=== PATIENT | male | born 1950 | race Two or more races ===

== ENCOUNTER 2022-08-18 12:15 | Inpatient (IN) | payer OTHER ==
[~2022-08-18] VITALS: Ht 167.6 cm; Wt 95.3 kg
[2022-08-19] MEDS ORDERED: AMLODIPINE BESY10 MG PO (09:27)
[2022-08-19] MEDS ORDERED: ZIAC 2.5-6.251 EACH PO (09:27)
[2022-08-19] MEDS ORDERED: ALTACE10 MG PO (09:27)
[2022-08-24] MEDS ORDERED: SILDENAFIL CIT100 MG (09:59)
[2022-08-26] MEDS ORDERED: ELIQUIS2.5 MG PO (07:46)
[2022-08-26] MEDS ORDERED: PERCOCET 5-3251 EACH PO (07:46)
[2022-08-26] MEDS ORDERED: DUI500 PO (07:46)
== END 2022-08-26 17:16 | DRG 470 ==
LOC: O/R 08-23 06:50 → SURG 08-23 07:00
PROVIDERS: ADMIT Orthopaedic Surgery; ATTEND Orthopaedic Surgery
PROC: 0SRC0J9 Replacement of Right Knee Joint with Synthetic Substitute, Cemented, Open Approach (ICD-10-PCS; principal; 2022-08-23 07:00)
DX: M17.11 Unilateral primary osteoarthritis, right knee (principal); M22.11 Recurrent subluxation of patella, right knee; I10 Essential (primary) hypertension; Z96.651 Presence of right artificial knee joint; Z20.822 Contact with and (suspected) exposure to COVID-19